=== PATIENT | male | born 1965 | race Caucasian/White ===

== ENCOUNTER → 2017-10-28 | Outpatient (CLI) | payer OTHER ==
[2016-02-05 16:23] VITALS: BMI 31.9
[~2017-10-28] MED LIST: AMA100 PO; BUPR-136 PO; CEPH-13 PO; HYDR-389 PO; HYDR-4309 PO; LID5T TP; MODA100T39 PO; OXYB5TAB86 PO; RIVA15TA PO; TERI14TA PO; VENL150C61 PO
== END ==
LOC: LAB 09:48
PROVIDERS: ATTEND Internal Medicine Cardiovascular Disease
DX: I25.10 Atherosclerotic heart disease of native coronary artery without angina pectoris (principal); E78.5 Hyperlipidemia, unspecified
CPT/HCPCS: 36415; 82465; 83718; 84478

== ENCOUNTER → 2018-07-30 | Outpatient (CLI) | payer OTHER ==
[2016-02-05 16:23] VITALS: BMI 31.9
[~2018-07-30] MED LIST changes: -HYDR-4309 PO; +HYDR-653 PO
== END ==
LOC: US 07-14 00:28
PROVIDERS: ATTEND Internal Medicine
DX: I47.2 Ventricular tachycardia (principal)
CPT/HCPCS: 93306

== ENCOUNTER 2019-01-25 19:40 | Emergency (ER) | payer OTHER ==
[2016-02-05 16:23] VITALS: Wt 117.9 kg
[2019-01-25 19:44] VITALS: BP 127/85
[2019-01-25] MEDS ORDERED: TRAZ50TA52 PO (19:49)
[2019-01-25] MEDS ORDERED: ATOR10TA24 PO (19:49)
[2019-01-25] MEDS ORDERED: MS MEDICATION (19:49)
--- NOTE | 2019-01-25 20:20 | EKG ---
FACILITY: [facility] PATIENT NAME: ISMAEL PADGETT : [id number] MR: [id number] V: [id number] EXAM DATE: ORDERING PHYSICIAN: DUSTIN JAIMES TECHNOLOGIST: ROSITA Wiley Reason : CARDIAC Blood Pressure : / mmHG Vent. Rate : 076 BPM Atrial Rate : 076 BPM P-R Int : 146 ms QRS Dur : 070 ms QT Int : 404 ms P-R-T Axes : 062 002 037 degrees QTc Int : 454 ms Normal sinus rhythm No ST-T abnormalities When compared with ECG of 19-OCT-2016 20:31, Sinus rhythm has replaced Atrial fibrillation Confirmed by NAE RIVERA ([id number]) on 01/26/2019 1:03:16 AM Referred By: Confirmed By:NAE RIVREA
[2019-01-25 20:27] LABS: PLATELET COUNT, AUTOMATED 181 K/uL (150-450)
--- NOTE | 2019-01-25 20:27 | ER Report ---
History and Physical Time Seen By MD: 19:45 Hx. of Stated Complaint: RAPID HEART RATE PT DENIES SYMPTOMS, PACEMAKER HPI/ROS CHIEF COMPLAINT: reported heart racing last night HISTORY OF PRESENT ILLNESS: This is a 53 year old male. He has a pacemaker. Was called by his cutting [employer] today saying he had racing heart last night according to his pacemaker readings. He has no chest pain. No shortness of breath. No headache. No vision changes. No dizziness. No nausea. Has been eating and drinking normally. No recent illnesses. Took an extra strength Tylenol last night. No changes in medicines. No other over the counter medicines or supplements. 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 Allergies: Coded Allergies: No Known Drug Allergies (Unverified , 10/19/16) Home Meds Reported Medications [Ms Medication] No Conflict Check 01/25/19 Trazodone Hcl (TRAZODONE HCL) 50 Mg Tablet, 50 MG PO QHS 01/25/19 Atorvastatin Calcium (LIPITOR) 10 Mg Tablet, 0.5 TAB PO QDAY, TAB 01/25/19 Amantadine Hcl (AMANTADINE) 100 Mg Capsule, 100 MG PO BID, CAPSULE 10/19/16 Oxybutynin Chloride (OXYBUTYNIN CHLORIDE) 5 Mg Tablet, 5 MG PO BID, #60 02/05/16 Venlafaxine Hcl (EFFEXOR XR) 150 Mg Cap.er.24h, 150 MG PO QDAY 11/24/13 Reviewed Nurses Notes: Yes Hx Smoking: Yes (1ppd) Smoking Status: Current: Every Day Smoker, Heavy Tobacco Smoker Hx Substance Use Disorder: No Hx Alcohol Use: No Constitutional Vital Sign - Last 24 Hours 01/25/19 19:44 Temp 98.1 Pulse 84 Resp 16 B/P (MAP) 127/85 Pulse Ox 93 O2 Delivery Room Air Physical Exam General Appearance: Alert, no distress. Eyes: Pupils equal and round no injection. ENT: Normal oral mucosa. Moist mucous membranes. Neck: Neck is supple. No carotid bruits. Respiratory: Chest is non tender, lungs are clear to auscultation. Cardiac: regular rate and rhythm. Normal peripheral perfusion, trace bilateral ankle edema. Gastrointestinal: Abdomen is soft, non-tender. Normal bowel sounds. Musculoskeletal: Extremities have full range of motion. Skin: No rashes or lesions. DIFFERENTIAL DIAGNOSIS: After history and physical exam differential diagnosis was considered for asymptomatic tachycardia reported by cardiology from the pacemaker. Patient has no symptoms. Here at recommendation of cardiology for labs. Medical Decision Making Data Points Result Diagram: 01/25/19200601/25/192006 Laboratory Hematology Test 01/25/19 20:07 Red Blood Count 5.10 M/uL (4.00-5.60) Mean Corpuscular Volume 93.9 fL (80.0-96.0) Mean Corpuscular Hemoglobin 32.1 pg (26.0-33.0) Mean Corpuscular Hemoglobin Concent 34.2 g/dL (32.0-36.0) Red Cell Distribution Width 14.4 % (11.5-14.5) Mean Platelet Volume 8.5 fL (7.2-11.1) Neutrophils (%) (Auto) 65.2 % (39.4-72.5) Lymphocytes (%) (Auto) 26.2 % (17.6-49.6) Monocytes (%) (Auto) 8.1 % (4.1-12.4) Eosinophils (%) (Auto) 0.5 % (0.4-6.7) Basophils (%) (Auto) 0.0 % (0.3-1.4) Nucleated RBC Relative Count (auto) 0.1 /100WBC Neutrophils # (Auto) 4.0 K/uL (2.0-7.4) Lymphocytes # (Auto) 1.6 K/uL (1.3-3.6) Monocytes # (Auto) 0.5 K/uL (0.3-1.0) Eosinophils # (Auto) 0.0 K/uL (0.0-0.5) Basophils # (Auto) 0.0 K/uL (0.0-0.1) Nucleated RBC Absolute Count (auto) 0.00 K/uL Sodium Level 141 mmol/L (137-145) Potassium Level 3.9 mmol/L (3.5-5.0) Chloride Level 109 mmol/L (98-107) Carbon Dioxide Level 21 mmol/L (22-30) Blood Urea Nitrogen 17 mg/dl (9-21) Creatinine 1.00 mg/dl (0.66-1.25) Glomerular Filtration Rate Calc > 60.0 Random Glucose 91 mg/dl (75-110) Calcium Level 9.1 mg/dl (8.4-10.2) Magnesium Level 1.8 mg/dl (1.7-2.2) Total Bilirubin 0.5 mg/dl (0.2-1.3) Aspartate Amino Transf (AST/SGOT) 32 U/L (0-35) Alanine Aminotransferase (ALT/SGPT) 43 U/L (0-56) Alkaline Phosphatase 103 U/L (0-126) Troponin I < 0.012 ng/ml Total Protein 7.0 g/dl (6.3-8.2) Albumin 4.1 g/dl (3.5-5.0) Chemistry Test 01/25/19 20:07 White Blood Count 6.1 k/uL (4.5-11.0) Red Blood Count 5.10 M/uL (4.00-5.60) Hemoglobin 16.4 g/dL (14.0-18.0) Hematocrit 47.9 % (42.0-52.0) Mean Corpuscular Volume 93.9 fL (80.0-96.0) Mean Corpuscular Hemoglobin 32.1 pg (26.0-33.0) Mean Corpuscular Hemoglobin Concent 34.2 g/dL (32.0-36.0) Red Cell Distribution Width 14.4 % (11.5-14.5) Platelet Count 181 K/uL (150-450) Mean Platelet Volume 8.5 fL (7.2-11.1) Neutrophils (%) (Auto) 65.2 % (39.4-72.5) Lymphocytes (%) (Auto) 26.2 % (17.6-49.6) Monocytes (%) (Auto) 8.1 % (4.1-12.4) Eosinophils (%) (Auto) 0.5 % (0.4-6.7) Basophils (%) (Auto) 0.0 % (0.3-1.4) Nucleated RBC Relative Count (auto) 0.1 /100WBC Neutrophils # (Auto) 4.0 K/uL (2.0-7.4) Lymphocytes # (Auto) 1.6 K/uL (1.3-3.6) Monocytes # (Auto) 0.5 K/uL (0.3-1.0) Eosinophils # (Auto) 0.0 K/uL (0.0-0.5) Basophils # (Auto) 0.0 K/uL (0.0-0.1) Nucleated RBC Absolute Count (auto) 0.00 K/uL Glomerular Filtration Rate Calc > 60.0 Calcium Level 9.1 mg/dl (8.4-10.2) Magnesium Level 1.8 mg/dl (1.7-2.2) Total Bilirubin 0.5 mg/dl (0.2-1.3) Aspartate Amino Transf (AST/SGOT) 32 U/L (0-35) Alanine Aminotransferase (ALT/SGPT) 43 U/L (0-56) Alkaline Phosphatase 103 U/L (0-126) Troponin I < 0.012 ng/ml Total Protein 7.0 g/dl (6.3-8.2) Albumin 4.1 g/dl (3.5-5.0) EKG/Imaging EKG Interpretation 12 lead EKG: Rhythm: Normal sinus rhythm, rate 76 [place]: normal QRS: normal ST segments: Nonspecific flattening, no ST elevation or depression No sign of pacemaker activity ED Course/Re-evaluation ED Course Labs unremarkable. Has had some intermittent PVCs on monitor, not frequent. He is unable to tell when having them. Recommended no changes at this time and follow-up with cardiology, patient will call them tomorrow. Decision to Disposition Date: Jan 25, 2019 Decision to Disposition Time: 20:48 Depart Departure Latest Vital Signs Vital Signs Date Time Temp Pulse Resp B/P (MAP) Pulse Ox O2 Delivery O2 Flow Rate FiO2 01/25/19 19:44 98.1 84 16 127/85 93 Room Air Impression: Primary Impression: Premature ventricular contractions Condition: Improved Disposition: HOME OR SELF-CARE Patient Instructions: Premature Ventricular Contractions (ED) Additional Instructions: We did not find anything dangerous with your heart. Labs were unremarkable. You had a few scattered premature ventricular contractions that you could be feeling. These are not dangerous. No changes to medications. Call cardiology tomorrow to arrange follow-up. DUSTIN JAIMES MD Jan 25, 2019 20:27
== END 2019-01-25 20:58 | disposition home or self-care (01) ==
LOC: ER 20:10
DX: I49.3 Ventricular premature depolarization (principal)
CPT/HCPCS: 82040; 82247; 82310; 82374; 82435; 82565; 82947; 83735; 84075; 84132; 84155; 84295; 84450; 84460; 84484; 84520; 85025; 93005; 99283

== ENCOUNTER → 2019-02-23 | Outpatient (CLI) | payer OTHER ==
[2016-02-05 16:23] VITALS: BMI 31.9
[~2019-02-23] MED LIST changes: +ATOR10TA24 PO; +MS MEDICATION; +TRAZ50TA52 PO
== END ==
LOC: LAB 09:31
PROVIDERS: ATTEND Internal Medicine Cardiovascular Disease
DX: I25.10 Atherosclerotic heart disease of native coronary artery without angina pectoris (principal); I47.2 Ventricular tachycardia
CPT/HCPCS: 36415; 83735

== ENCOUNTER 2019-04-03 09:57 | Emergency (ER) | payer OTHER ==
[2016-02-05 16:23] VITALS: Wt 108.9 kg
--- NOTE | 2019-04-03 10:36 | ER Report ---
History and Physical Time Seen By MD: 10:30 Hx. of Stated Complaint: PT REPORTS LL DENTAL SWELLING/PAIN SINCE THURSDAY, "OFF AND ON FOR 4 YEARS" HPI/ROS CHIEF COMPLAINT: Dental pain and swelling HISTORY OF PRESENT ILLNESS: This is a 53-year-old male who presents to the emergency for dental pain and swelling. Patient states that about 2 days ago he developed some pain along the left lower gumline, last night he said he had some swelling then today he had a significant increase in swelling, pain, no difficult breathing or swallowing. No fevers at home. It is very painful along the jawline. REVIEW OF SYSTEMS: ENT: As above. Respiratory: No cough, no dyspnea. Cardiovascular: No chest pain, no palpitations. Gastrointestinal: No vomiting, no abdominal pain. Musculoskeletal: No back pain. Allergies: Coded Allergies: No Known Drug Allergies (Unverified , 04/03/19) Home Meds Active Scripts Hydrocodone Bit/Acetaminophen (NORCO 5-325 TABLET) 1 Each Tablet, 1 EACH PO Q4- 6H PRN for PAIN, #5 TAB Prov:NATALIYA LOP- 04/03/19 Penicillin V Potassium 500 Mg Tab (PENICILLIN V POTASSIUM 500 MG TAB) 500 Mg Tablet, 500 MG PO QID for 7 Days, #28 TAB 0 Refills Prov:NATALIYA LOP- 04/03/19 Reported Medications [Ms Medication] No Conflict Check 01/25/19 Trazodone Hcl (TRAZODONE HCL) 50 Mg Tablet, 50 MG PO QHS 01/25/19 Atorvastatin Calcium (LIPITOR) 10 Mg Tablet, 0.5 TAB PO QDAY, TAB 01/25/19 Amantadine Hcl (AMANTADINE) 100 Mg Capsule, 100 MG PO BID, CAPSULE 10/19/16 Oxybutynin Chloride (OXYBUTYNIN CHLORIDE) 5 Mg Tablet, 5 MG PO BID, #60 02/05/16 Venlafaxine Hcl (EFFEXOR XR) 150 Mg Cap.er.24h, 150 MG PO QDAY 11/24/13 Past Medical/Surgical History Patient has a past medical and surgical history of MS, pacemaker, myocardial infarctions with stents, GERD, one kidney, left foot fracture, cholecystectomy. Depression. Reviewed Nurses Notes: Yes Hx Smoking: Yes (1ppd) Smoking Status: Current: Every Day Smoker, Heavy Tobacco Smoker Hx Substance Use Disorder: No Hx Alcohol Use: No Constitutional Vital Sign - Last 24 Hours 04/03/19 04/03/19 10:00 11:27 Temp 97.5 Pulse 100 81 Resp 16 16 B/P (MAP) 157/109 150/105 (120) Pulse Ox 93 95 O2 Delivery Room Air Room Air Physical Exam General Appearance: The patient is alert, has no immediate need for airway protection and no current signs of toxicity. Dental: Significant dental decay, dental caries, most teeth have been removed. There is swelling, pain and gingivitis along the left lower jawline, no purulent drainage. Eyes: Pupils equal and round no injection. Respiratory: Chest is non tender, lungs are clear to auscultation. Cardiac: regular rate and rhythm no murmurs, clicks or rubs. Gastrointestinal: Abdomen is soft and non tender, no masses, bowel sounds normal. Musculoskeletal: Neck: Neck is supple and non tender. No lymphadenopathy. Extremities have full range of motion and are non tender. Skin: Swelling to the left lower jaw. No crepitus or signs of cellulitis. DIFFERENTIAL DIAGNOSIS: After history and physical exam differential diagnosis was considered for dental caries, dental abscess, Vitor's angina, peritonsillar abscess. Medical Decision Making ED Course/Re-evaluation ED Course The patient was admitted to room. After physical were obtained. Differential diagnoses were considered. An inferior alveolar block was successful, using 0.5% bupivacaine with lidocaine. Patient tolerated well, he was given a prescription for penicillin and hydrocodone. He does have a follow-up appointment with the dental clinic in [place] next week for reevaluation, likely removal of the remaining teeth that he has. He had no other complaints or concerns at this time and was discharged home. He also received 1 g of IM Rocephin in the emergency department. The patient was agreeable with this plan of care. Decision to Disposition Date: Apr 03, 2019 Decision to Disposition Time: 11:19 Depart Departure Latest Vital Signs Vital Signs Date Time Temp Pulse Resp B/P (MAP) Pulse Ox O2 Delivery O2 Flow Rate FiO2 04/03/19 11:27 81 16 150/105 (120) 95 Room Air 04/03/19 10:00 97.5 Impression: Primary Impression: Dental abscess Condition: Improved Disposition: HOME OR SELF-CARE New Scripts Hydrocodone Bit/Acetaminophen (NORCO 5-325 TABLET) 1 Each Tablet 1 EACH PO Q4-6H PRN for PAIN, #5 TAB Prov: NATALIYA LO 04/03/19 Penicillin V Potassium 500 Mg Tab (PENICILLIN V POTASSIUM 500 MG TAB) 500 Mg Tablet 500 MG PO QID for 7 Days, #28 TAB 0 Refills Prov: NATALIYA LO 04/03/19 Patient Instructions: Dental Abscess (ED), Dental Caries (ED) Additional Instructions: Please take the antibiotics as prescribed. Take ibuprofen or Tylenol as needed for pain. Take hydrocodone for severe pain, when taking hydrocodone do not take Tylenol as the hydrocodone has Tylenol in it. Keep your appointment next Thursday with the dentist in [place]. Also of like you to do salt water gargles every 4-6 hours. Drink plenty of water. Get plenty of rest. Return to the ER for any concerns or worsening symptoms. NATALIYA LO Apr 03, 2019 10:35
[2019-04-03] MEDS ORDERED: PENI-24 PO (10:47)
[2019-04-03] MEDS ORDERED: HYDR-653 PO (10:47)
[2019-04-03] MEDS ORDERED: cefTRIAXone 1 GM VIAL IM ONE (10:55)
[2019-04-03] MEDS ORDERED: LIDOCAINE 1% MDV 200 MG/20 ML INJ ONE (10:55)
[2019-04-03 11:27] VITALS: BP 150/105
== END 2019-04-03 11:27 | disposition home or self-care (01) ==
LOC: ER 10:45
DX: K04.7 Periapical abscess without sinus (principal)
CPT/HCPCS: 96372; 99283; J0696; J2001